=== PATIENT | female | born 1975 ===

== ENCOUNTER 2016-07-28 20:04 | Emergency (ER) | payer MEDICAID ==
[2016-07-28] MEDS ORDERED: LOPERAMIDE HCL 2 MG CAPSULE ONE (21:16)
[2016-07-28] MEDS ORDERED: ONDANSETRON 4 MG ODT TAB ONE (21:17)
[2016-07-28] MEDS ORDERED: IBUPROFEN 800 MG TABLET ONE (21:17)
[2016-07-28 22:25] LABS: URINE BILIRUBIN NEGATIVE (NEGATIVE); URINE BLOOD 1+ (NEGATIVE); URINE GLUCOSE (UA) NEGATIVE (NEGATIVE); URINE LEUKOCYTE ESTERASE NEGATIVE (NEGATIVE); URINE NITRITE NEGATIVE (NEGATIVE); URINE PROTEIN NEGATIVE (NEGATIVE); URINE UROBILINOGEN NORMAL (0-1 mg/dl)
[2016-07-28 22:30] LABS: URINE APPEARANCE CLEAR; URINE COLOR YELLOW
[2016-07-28 22:32] LABS: HCG,QUALITATIVE URINE NEGATIVE
[2016-07-28 22:42] LABS: URINE BACTERIA RARE; URINE CRYSTALS 2+ CALCIUM OXILATE /hpf; URINE RBC 0-2 /hpf; URINE WBC 0-2 /hpf
--- NOTE | 2016-07-29 07:37 | RAD ---
Exam: Two-view chest COMPARISON: 11/11/2013 INDICATION: Cough for 3 weeks. FINDINGS: PA and lateral views of the chest were obtained. Cardiac silhouette is within normal limits and stable. Lungs normally inflated. There is no focal airspace disease or pleural effusion. Minor degenerative changes are seen within the thoracic spine. IMPRESSION: No acute pulmonary process.
== END 2016-07-28 22:39 | disposition home or self-care (01) ==
LOC: ED 20:04
DX: R19.7 Diarrhea, unspecified (principal); R05 Cough; B34.9 Viral infection, unspecified
CPT/HCPCS: 81025; 81001; 71020; 99283 ×2; A9270 ×3

== ENCOUNTER 2016-09-09 19:07 | Emergency (ER) | payer MEDICAID | END 2016-09-09 20:30 | disposition home or self-care (01) | LOC: ED 19:07 | DX: S46.001A Unspecified injury of muscle(s) and tendon(s) of the rotator cuff of right shoulder, initial encounter (principal); M25.511 Pain in right shoulder; I10 Essential (primary) hypertension; E11.9 Type 2 diabetes mellitus without complications; X58.XXXA Exposure to other specified factors, initial encounter ==